=== PATIENT | female | born 1970 | race Caucasian/White ===

== ENCOUNTER → 2018-07-11 | Day surgery (SDC) | payer MEDICAID ==
[~2018-07-11] MED LIST: Lactated Ringers 1,000 ML IV SCH; Propofol 200 MG/20 ML SDV IV ONE
[2018-07-11 12:15] VITALS: BP 119/81
--- NOTE | 2018-07-11 14:59 | OR ---
DATE OF OPERATION: 07/11/2018 PREOPERATIVE DIAGNOSIS: FAMILY HISTORY OF COLON CANCER. POSTOPERATIVE DIAGNOSIS: FAMILY HISTORY OF COLON CANCER. SURGEON: Nikhil Goldberg MD PROCEDURE: SCREENING COLONOSCOPY WITH FORCEPS POLYP REMOVAL X4. ANESTHESIA: MAC via COLD MILL OPERATOR. COMPLICATIONS: None. SPECIMEN: Four sessile polyps, all less than 3 mm. FINDINGS: 1. Full-length colonoscopy. 2. Mild sigmoid diverticulosis. 3. Four small sessile polyps, all less than 3 mm. RECOMMENDATIONS: Followup colonoscopy in 5 years. INDICATIONS: The patient has a sister with a diagnosis of colon cancer, she is due for a 5-year screening colonoscopy. DESCRIPTION OF PROCEDURE: The patient was prepped and draped, placed in the left lateral decubitus position. A lubricated Olympus colonoscope was inserted and easily advanced to the cecum. We were able to directly visualize the ileocecal valve and appendiceal orifice. The bowel prep was fine. Upon withdrawal of the scope, the cecum and ascending colon were unremarkable. Just past the hepatic flexure, in the proximal transverse colon, the patient had a small, flat, hyperplastic-appearing polyp, removed in its entirety with forceps. The rest of the transverse colon was benign. Descending colon was unremarkable. The patient does have scattered diverticula in the sigmoid area, very mild in severity. At around 50 cm, the patient had a second small sessile polyp, removed with forceps biopsy x2. No other polyps, masses, or lesions; signs of colitis; or vascular abnormalities were seen in the sigmoid or rectosigmoid area. In the rectal vault, the patient had 2 small hyperplastic-appearing polyps, anih-rn-rand, both removed with forceps in their entirety without complication. Retroflexion of scope in the rectum showed no perianal lesions. Air was suctioned, scope removed without complication. BELLA/SAEID /[id number]
== END ==
LOC: CC.SDS 10:48
PROVIDERS: ATTEND Family Medicine
DX: Z12.11 Encounter for screening for malignant neoplasm of colon (principal); K63.5 Polyp of colon; K57.30 Diverticulosis of large intestine without perforation or abscess without bleeding; K63.89 Other specified diseases of intestine; K62.89 Other specified diseases of anus and rectum; F17.210 Nicotine dependence, cigarettes, uncomplicated; F41.9 Anxiety disorder, unspecified; F32.9 Major depressive disorder, single episode, unspecified; M19.90 Unspecified osteoarthritis, unspecified site; M46.1 Sacroiliitis, not elsewhere classified; E66.9 Obesity, unspecified; Z68.35 Body mass index [BMI] 35.0-35.9, adult; Z88.0 Allergy status to penicillin; Z88.8 Allergy status to other drugs, medicaments and biological substances; Z91.030 Bee allergy status; Z80.0 Family history of malignant neoplasm of digestive organs; Z79.1 Long term (current) use of non-steroidal anti-inflammatories (NSAID); Z79.899 Other long term (current) drug therapy
CPT/HCPCS: J2704; J7120

== ENCOUNTER 2020-08-08 00:42 | Emergency (ER) | payer MEDICAID ==
[2020-08-08 00:45] VITALS: BP 126/61; PULSE 98
--- NOTE | 2020-08-08 01:16 | EDM.PDOC ---
ED HPI GENERAL MEDICAL PROBLEM - General Chief Complaint: Lower Extremity Injury/Pain Stated Complaint: "knee wont bend" Time Seen by Provider: 08/08/20 00:54 Source of Information: Reports: Patient History Limitations: Reports: No Limitations - History of Present Illness INITIAL COMMENTS - FREE TEXT/NARRATIVE: This patient is a 50 year old female that presents to the ER. Patient reports that she comes in this morning because her left knee locked up again. She reports she can not move her knee, no ROM. She reports that this occurred about 2 weeks ago. She reports she was seen in [facility] for her knee lock up 2 weeks ago. Patient reports she was given muscle relaxers and pain medication and they fixed her knee. Patient reports she had a TKR in October 2019. She reports it got infect, she then was placed on IV abx. She reports then the infection did not resolve, so she had another surgery done in March and they put a device in her leg jordan thigh to maradiaga per patient and removed the plastic out of the knee replacement. Onset: Today Onset Date: 08/08/20 Onset Time: 00:05 Location: Reports: Lower Extremity, Left Severity: Moderate Improves with: Reports: Immobilization Worsens with: Reports: Movement Associated Symptoms: Reports: No Other Symptoms - Related Data Allergies Allergy/AdvReac Type Severity Reaction Status Date / Time codeine Allergy Cannot Verified 08/08/20 00:58 Remember Corticosteroids Allergy Cannot Verified 08/08/20 00:58 (Glucocorticoids) Remember Penicillins Allergy Cannot Verified 08/08/20 00:58 Remember venom-honey bee Allergy Airway Verified 08/08/20 00:58 [bee venom (honey bee)] Tightness Home Meds: Home Meds Acetaminophen [Tylenol Extra Strength] 500 - 1,000 mg PO Q4H PRN 05/13/13 [History] Cyclobenzaprine HCl 10 mg PO BEDTIME 07/05/18 [History] traZODone HCl [Trazodone HCl] 50 mg PO BEDTIME 07/05/18 [History] DAPTOmycin [Daptomycin] 650 mg IV DAILY 01/04/20 [History] Heparin Sodium [Heparin Lock Flush] 500 unit FLUSH ASDIRECTED 01/04/20 [History] Sennosides/Docusate Sodium [Senna-Docusate Sodium Tablet] 1 tab PO BID 01/04/20 [History] lisinopriL [Lisinopril] 20 mg PO DAILY 01/04/20 [History] oxyCODONE 5 - 10 mg PO Q4H PRN 01/04/20 [History] polyethylene glycoL 3350 [MiraLAX] 17 gm PO DAILY 01/04/20 [History] traMADol [Ultram] 50 mg PO Q6H PRN 01/04/20 [History] Past Medical History - Past Surgical History HEENT Surgical History: Reports: Tonsillectomy Female Surgical History: Reports: Section, Tubal Ligation Musculoskeletal Surgical History: Reports: Arthroscopic Knee, Knee Replacement Social & Family History - Family History Family Medical History: No Pertinent Family History Hematologic: Reports: Other (See Below) - Tobacco Use Tobacco Use Status *Q: Current Every Day Tobacco User Years of Tobacco use: 30 Packs/Tins Daily: 1 - Caffeine Use Caffeine Use: Reports: Coffee Review of Systems - Review of Systems Review Of Systems: See Below Constitutional: Reports: No Symptoms Eyes: Reports: No Symptoms Respiratory: Reports: No Symptoms Cardiovascular: Reports: No Symptoms Musculoskeletal: Reports: Joint Pain (left knee), Other Skin: Reports: No Symptoms Neurological: Reports: No Symptoms Psychiatric: Reports: No Symptoms ED EXAM, GENERAL - Physical Exam Exam: See Below Exam Limited By: No Limitations General Appearance: Alert, WD/WN, No Apparent Distress Respiratory/Chest: No Respiratory Distress, Lungs Clear Cardiovascular: Normal Peripheral Pulses, Regular Rate, Rhythm, No Edema Peripheral Pulses: 2+: Radial (L), Radial (R), Posterior Tibial (L), Posterior Tibial (R), Dorsalis Pedis (L), Dorsalis Pedis (R) Extremities: No Pedal Edema, Normal Capillary Refill, Limited Range of Motion (left knee), Other (left knee, swelling, pain, tenderness. Patient will not ROM the knee. Resistence with attempted ROM of the left knee. Pulses +2, cap refill < 2 sec, sensory, neurovascular intact. ). No: Increased Warmth, Redness Neurological: Alert, Oriented Psychiatric: Normal Affect, Normal Mood Skin Exam: Warm, Dry, Intact, Normal Color, No Rash. No: Erythema Course - Vital Signs Last Recorded V/S: Last Vital Signs Temp 98.6 F 08/08/20 00:43 Pulse 98 08/08/20 00:43 Resp 18 08/08/20 00:43 BP 126/61 08/08/20 00:43 Pulse Ox 96 08/08/20 00:43 - Orders/Labs/Meds Orders: Active Orders 24 hr Category Date Time Status Knee 1V or 2V Lt [CR] Stat Exams 08/08/20 01:10 Ordered - Radiology Interpretation Free Text/Narrative:: Left knee Xray: Left knee hardware dislocation. No Fx seen on 2 view. - Re-Assessments/Exams Free Text/Narrative Re-Assessment/Exam: 08/08/20 02:05 I called and spoke to Dr. Adkins orthopedic at [facility]. He reports to send patient to [facility] ER for reduction. I will transfer patient due to the hardware dislocation, patient knee history. Accepting is Dr. Dumont in ER. Patient +ETOH on board, her son will transport her private vehicle. Patient reports pain is mild, discussed pain medication, she reports can wait until reduction. Departure - Departure Time of Disposition: 02:13 Disposition: DC/Tfer to Acute Hospital 02 Condition: Fair Clinical Impression: Left knee dislocation Qualifiers: Encounter type: initial encounter Qualified Code(s): S83.105A - Unspecified dislocation of left knee, initial encounter - Discharge Information *PRESCRIPTION DRUG MONITORING PROGRAM REVIEWED*: Not Applicable *COPY OF PRESCRIPTION DRUG MONITORING REPORT IN PATIENT [place]: Not Applicable Forms: ED Department Discharge Additional Instructions: Go straight to [facility] ER[place] Sepsis Event Note (ED) - Evaluation Sepsis Screening Result: No Definite Risk - Focused Exam Vital Signs: Vital Signs Temp Pulse Resp BP Pulse Ox 08/08/20 00:43 98.6 F 98 18 126/61 96 - My Orders Last 24 Hours: My Active Orders 08/08/20 01:10 Knee 1V or 2V Lt [CR] Stat - Assessment/Plan Last 24 Hours: My Active Orders 08/08/20 01:10 Knee 1V or 2V Lt [CR] Stat Plan: PLEASE SEE RN NOTE FOR PFSH
== END 2020-08-08 02:36 ==
LOC: CC.ED 00:42
DX: S83.105A Unspecified dislocation of left knee, initial encounter (principal); Z88.5 Allergy status to narcotic agent; Z88.8 Allergy status to other drugs, medicaments and biological substances; Z88.0 Allergy status to penicillin; Z91.030 Bee allergy status; Z79.899 Other long term (current) drug therapy; Z72.0 Tobacco use; X58.XXXA Exposure to other specified factors, initial encounter
CPT/HCPCS: 73560-LT; 99284

== ENCOUNTER 2021-08-19 23:47 | Emergency (ER) | payer MEDICAID ==
[2021-08-20 00:06] VITALS: BP 140/86; PULSE 105
[2021-08-20 00:13] LABS: CHLORIDE,CL 103 mEq/L (98-106); SODIUM,NA 139 mEq/L (136-145)
[2021-08-20 00:14] LABS: ESTIMATED GFR > 60 mL/min (>=60)
[2021-08-20] MEDS: Enoxaparin 100 MG/1 ML Syringe SUBCUT STA (01:33)
[2021-08-20] MEDS: Take Home: Acetaminophen/HYDROcodone 325-5 MG, 2 Tab Pack PO ONE (01:41)
== END 2021-08-20 01:45 | disposition home or self-care (01) ==
LOC: CC.ED 23:47
DX: M79.662 Pain in left lower leg (principal); R79.1 Abnormal coagulation profile; I10 Essential (primary) hypertension; Z79.899 Other long term (current) drug therapy; Z88.5 Allergy status to narcotic agent; Z88.0 Allergy status to penicillin; Z91.030 Bee allergy status; Z88.8 Allergy status to other drugs, medicaments and biological substances
CPT/HCPCS: 36415; 80053; 85025; 85379; 86140; 96372; 99283; 99284; A9270-GY; J1650

== ENCOUNTER 2024-07-17 09:36 | Day surgery (SDC) | payer MEDICAID ==
[2024-07-17] MEDS: Lactated Ringers 1,000 ML IV SCH (09:51)
[2024-07-17] MEDS ORDERED: Midazolam 1 MG/ML 2 ML SDV ONE (10:02)
[2024-07-17] MEDS ORDERED: Propofol 200 MG/20 ML SDV ONE ×2 (10:02)
[2024-07-17] MEDS ORDERED: Ketamine 200 MG/20 ML MDV ONE (10:02)
[2024-07-17] MEDS ORDERED: fentaNYL 50 MCG/ML SDV ONE ×2 (10:02)
[2024-07-17 11:56] VITALS: BP 137/92; PULSE 85
== END 2024-07-17 11:23 | disposition home or self-care (01) ==
LOC: CC.SDS 09:36
PROVIDERS: ATTEND Family Medicine
DX: Z12.11 Encounter for screening for malignant neoplasm of colon (principal); K63.5 Polyp of colon; K57.30 Diverticulosis of large intestine without perforation or abscess without bleeding; Z86.0100 Personal history of colon polyps, unspecified; Z80.0 Family history of malignant neoplasm of digestive organs; F17.200 Nicotine dependence, unspecified, uncomplicated; Z79.899 Other long term (current) drug therapy; Z88.0 Allergy status to penicillin; Z88.8 Allergy status to other drugs, medicaments and biological substances
CPT/HCPCS: 00811; J2250; J2704; J3010; J3490; J7120